=== PATIENT | female | born 1995 | race Caucasian/White ===

== ENCOUNTER 2016-10-15 13:08 | Emergency (ER) | payer OTHER ==
[~2016-10-15] VITALS: Wt 94.0 kg
[~2016-10-15 13:08] MED LIST: HYOS0.1274 PO; ONDA4TAB8 PO
[2016-10-15] MEDS ORDERED: IBUPROFEN 800 MG TAB PO ONE (15:30)
[2016-10-15] MEDS ORDERED: IBUP-1542 PO (15:38)
--- NOTE | 2016-10-15 15:45 | ERD ---
ER Documentation Chief Complaint Date/Time DATE: 10/15/16 TIME: 15:41 Chief Complaint FINGER INJURY, SEEN AT ANOTHER HOSPITAL AND ADVISED FOR FOLLOW-UP HPI 21-year-old female with a past medical history of asthma, gastric bypass, cholecystectomy presents to the ED complaining of a laceration sustained to her left middle finger. States that she accidentally cut her left middle finger from a broken champagne glass 2 days ago. States that she was seen at [facility] and received an x-ray which was negative for any foreign bodies or fractures or dislocations. Reports that she has a sharp type of pain and rates it a 8 out of 10. Dates that she sustained a tendon injury and was told to see a hand specialist however presents today hoping that she could see a hand specialist. Denies any fever, chills, loss of sensation, loss of range of motion. ROS All systems reviewed and are negative except as per history of present illness. Medications Home Meds Active Scripts Ibuprofen* (Motrin*) 600 Mg Tab, 600 MG PO Q6, #30 TAB Prov:CODY SHEPPARD PA-C 10/15/16 Hyoscyamine Sulfate* (Levsin*) 0.125 Mg Tablet, 0.125 MG PO Q4H Y for spasm, # 10 TAB Prov:DIVINA DE DO 04/21/16 Ondansetron Hcl* (Zofran*) 4 Mg Tablet, 4 MG PO Q8H Y for NAUSEA AND/OR VOMITING , #10 TAB Prov:DIVINA DE DO 04/21/16 Allergies Allergies: Coded Allergies: No Known Allergy (Unverified , 01/06/16) PMhx/Soc History of Surgery: Yes (GASTRIC BYPASS) Anesthesia Reaction: No Hx Neurological Disorder: No Hx Respiratory Disorders: Yes (ASTHMA) Hx Cardiac Disorders: No Hx Psychiatric Problems: No Hx Miscellaneous Medical Probl: No Hx Alcohol Use: Yes (OCC) Hx Substance Use: No Hx Tobacco Use: No Smoking Status: Never smoker Physical Exam Vitals Vital Signs Date Time Temp Pulse Resp B/P Pulse Ox O2 Delivery O2 Flow Rate FiO2 10/15/16 13:15 97.0 59 18 118/80 98 Physical Exam Const: [id number], well-nourished. In no acute distress. Head: Atraumatic, normocephalic Eyes: Normal Conjunctiva without injection ENT: Normal external ear, nose and mouth. Neck: Full range of motion. No meningismus. Resp: Clear to auscultation bilaterally. No wheezing, rhonchi, rales, or crackles. No accessory muscle use. No retractions. Cardio: Regular rate and rhythm, no murmurs Skin: No petechiae or rashes Back: No midline tenderness. No CVA tenderness. Ext: No cyanosis, or edema. Full range of motion noted of the DIP, MCP joints. Slight limited range of motion of the DIP joint of the left middle finger. All other joints have full range of motion. No erythema, edema, purulent discharge. Cap refill less than 2 seconds. Distal pulses intact bilaterally. Neur: Awake and alert. Normal gait and coordination. Muscle strength 5/5. Sensation intact bilaterally. Psych: Normal Mood and Affect Results 24 hrs Current Medications Medications (Trade) Dose Ordered Sig/Keenan Route PRN Reason Start Time Stop Time Status Last Admin Dose Admin Ibuprofen (Motrin) 800 mg ONCE ONCE PO 10/15/16 15:30 10/15/16 15:31 DC Procedures/MDM This is a 21-year-old female with no significant past medical history presents to the ED complaining of a left middle finger laceration she sustained 2 days ago after touching a broken piece of champagne glass. Patient is afebrile and nontoxic-appearing. Patient has normal vital signs. There is currently 4 sutures noted on the laceration site placed by a physician at [facility]. There is no signs of dehiscence. Patient's laceration is healing well and appropriately. No evidence of cellulitis, sepsis. Patient verbalized that an x -ray of her left hand was done and was negative for fractures and glass foreign bodies. She did state that her tendon was lacerated, and is here for a referral. I will give patient the all review hand clinic resource and she is to follow-up with her primary care physician for a referral within 1 week. Patient is placed in a left middle finger metal splint. Splint Assessment: Neurovascularly intact pre and post splint placement with good fit. Patient's extremity symptoms have stabilized while they have been evaluated in the department and are appropriate for outpatient follow up. No evidence of fractures, dislocations, compartment syndrome, neurologic injury, vascular injury, open joint, open fracture, septic arthritis, osteomyelitis, DVT, foreign body, or other emergent conditions. Discharge medications: Ibuprofen. Patient was prescribed Keflex by the [place] [facility] physician, I strictly instructed patient to fill this prescription. Follow up with primary care physician in 1-2 days. Instructed patient to return to the ED sooner for any worsening symptoms. Patient's questions were answered. Patient understood and agreed with discharge plan. Patient discharged stable. Departure Diagnosis: Primary Impression: Finger injury Encounter type: initial encounter Laterality: left Qualified Code: S69.92XA - Finger injury, left, initial encounter Condition: Stable Patient Instructions: Laceration, Hand, Laceration, Tendon Referrals: BENY WALSH MD (PCP) [facility] YOU HAVE RECEIVED A MEDICAL SCREENING EXAM AND THE RESULTS INDICATE THAT YOU DO NOT HAVE A CONDITION THAT REQUIRES URGENT TREATMENT IN THE EMERGENCY DEPARTMENT. FURTHER EVALUATION AND TREATMENT OF YOUR CONDITION CAN WAIT UNTIL YOU ARE SEEN IN YOUR DOCTORS OFFICE WITHIN THE NEXT 1-2 DAYS. IT IS YOUR RESPONSIBILITY TO MAKE AN APPOINTMENT FOR FOLOW-UP CARE. IF YOU HAVE A PRIMARY DOCTOR --you should call your primary doctor and schedule an appointment IF YOU DO NOT HAVE A PRIMARY DOCTOR YOU CAN CALL OUR PHYSICIAN REFERRAL HOTLINE AT IF YOU CAN NOT AFFORD TO SEE A PHYSICIAN YOU CAN CHOSE FROM THE FOLLOWING [facility] [address] [facility]. [facility] [address] [facility]. [facility] [address] [facility] [facility] [address] [facility] [address] [facility]. [facility]. [address] [facility]. [facility] YOU HAVE RECEIVED A MEDICAL SCREENING EXAM AND THE RESULTS INDICATE THAT YOU DO NOT HAVE A CONDITION THAT REQUIRES URGENT TREATMENT IN THE EMERGENCY DEPARTMENT. FURTHER EVALUATION AND TREATMENT OF YOUR CONDITION CAN WAIT UNTIL YOU ARE SEEN IN YOUR DOCTORS OFFICE WITHIN THE NEXT 1-2 DAYS. IT IS YOUR RESPONSIBILITY TO MAKE AN APPOINTMENT FOR FOLOW-UP CARE. IF YOU HAVE A PRIMARY DOCTOR --you should call your primary doctor and schedule and appointment IF YOU DO NOT HAVE A PRIMARY DOCTOR YOU CAN CALL OUR PHYSICIAN REFERRAL HOTLINE AT . IF YOU CAN NOT AFFORD TO SEE A PHYSICIAN YOU CAN CHOSE FROM THE FOLLOWING [facility] INSTITUTIONS: [facility] [address] [place] [address] [facility] [address] [place] [address] [facility] [address] [place] [address] [facility] Additional Instructions: FOLLOW UP WITH YOUR PRIMARY CARE PHYSICIAN TOMORROW for a referral to a hand specialist. Complete the course of Keflex prescribed by [place] doctor. Return to this facility if you are not improving as expected. CODY SHEPPARD PA-C Oct 15, 2016 15:45
== END 2016-10-15 16:02 | disposition home or self-care (01) ==
LOC: FTE 13:08
DX: S61.213A Laceration without foreign body of left middle finger without damage to nail, initial encounter (principal); J45.909 Unspecified asthma, uncomplicated; W25.XXXA Contact with sharp glass, initial encounter; Y92.9 Unspecified place or not applicable
CPT/HCPCS: 29130; Z7502; Z7610

== ENCOUNTER 2018-10-15 12:34 | Emergency (ER) | payer MEDICAID, OTHER ==
[~2018-10-15] VITALS: Ht 180.3 cm; Wt 111.3 kg
[~2018-10-15 12:34] MED LIST changes: +IBUP-1542 PO
[2018-10-15 12:41] VITALS: PULSE 96; RESP 20; Ht 180.3 cm; Wt 111.3 kg
--- NOTE | 2018-10-15 14:54 | ERD ---
ER Documentation Chief Complaint Chief Complaint pt. is 16 weeks , sent by OBGYN, "no movement" HPI 23-year-old female at 16 weeks EGA by LMP 06/26/18, presents to the em ergency department referred by [facility] for an ultrasound, according to the patient she is not able to feel the fetus and she was feeling it last week. The patient denies vaginal bleeding, no vaginal discharge, no abdominal pain, no fever or chills. ROS All systems reviewed and are negative except as per history of present illness. Medications Home Meds Active Scripts Ibuprofen* (Motrin*) 600 Mg Tab, 600 MG PO Q6, #30 TAB Prov:CODY SHEPPARD PA-C 10/15/16 Hyoscyamine Sulfate* (Levsin*) 0.125 Mg Tablet, 0.125 MG PO Q4H PRN for spasm, #10 TAB Prov:DIVINA DE DO 04/21/16 Ondansetron Hcl* (Zofran*) 4 Mg Tablet, 4 MG PO Q8H PRN for NAUSEA AND/OR VOMITING, #10 TAB Prov:DIVINA DE 04/21/16 Allergies Allergies: Coded Allergies: No Known Allergy (Unverified , 01/06/16) PMhx/Soc History of Surgery: Yes (GASTRIC BYPASS) Anesthesia Reaction: No Hx Neurological Disorder: No Hx Respiratory Disorders: Yes (ASTHMA) Hx Cardiac Disorders: No Hx Psychiatric Problems: No Hx Miscellaneous Medical Probl: No Hx Alcohol Use: Yes (OCC) Hx Substance Use: No Hx Tobacco Use: No Physical Exam Vitals Vital Signs Date Temp Pulse Resp B/P (MAP) Pulse Ox O2 O2 Flow FiO2 Time Delivery Rate 10/15/18 98.1 96 20 98 12:41 Physical Exam Const: No acute distress Head: Atraumatic Eyes: Normal Conjunctiva ENT: Normal External Ears, Nose and Mouth. Neck: Full range of motion. No meningismus. Resp: Clear to auscultation bilaterally Cardio: Regular rate and rhythm, no murmurs Abd: Soft, non tender, non distended. Normal bowel sounds Skin: No petechiae or rashes Back: No midline or flank tenderness Ext: No cyanosis, or edema Neur: Awake and alert Psych: Normal Mood and Affect Results 24 hrs Laboratory Tests Test 10/15/18 15:02 Bedside Urine pH (LAB) 7.0 Bedside Urine Protein (LAB) Negative Bedside Urine Glucose (UA) Negative Bedside Urine Ketones (LAB) Negative Bedside Urine Blood Negative Bedside Urine Nitrite (LAB) Negative Bedside Urine Leukocyte Esterase (L Negative [place] [id number] Radiology Main Line: [phone] DIAGNOSTIC IMAGING REPORT Patient: DESTINEE VERAS : 1995 Age: 23 Sex: F MR #: [id number] DOS: 10/15/18 1452 Ordering MD: BENITA DE LA O MD Location: [facility] Room/Bed: PROCEDURE: US OB. CLINICAL INDICATION: Obstetrical surveillance TECHNIQUE: Transabdominal obstetrical sonographic evaluation was performed. COMPARISON: None available. FINDINGS: There is a single living intrauterine gestation with cephalic presentation and anterior midline placenta. There is a moderate amount of amniotic fluid. heart rate of 152 beats per minute was detected during this examination. BPD = 3.4 cm, 16 weeks and 3 days HC = 12.4 cm, 16 weeks and 1 day AC = 10 cm, 16 weeks and 0 day FL = 1.9 cm, 15 weeks and 3 days Based on four parameters of biparietal diameter, head circumference, abdominal circumference and femoral head, estimated gestational age only based on this study is 16 weeks +/- 1 week and 1 day. Estimated date of confinement based on this examination is 04/01/2019. Estimated weight is 136 +/- 20 grams. Cephalic index is 79%, within normal limits. IMPRESSION: 1. Single living intrauterine gestation with estimated gestational age of 16 weeks +/- 1 week and 1 day. RPTAT:AAEE Physician Ibrahima Date Time Electronically viewed and signed by Physician Ibrahima on 10/15/2018 16:03 RM/ CC: BENITA DE LA O MD [phone] Procedures/MDM Vital signs stable, Physical exam unremarkable. Differential diagnosis include but not limited to: UTI, threatening , incomplete versus complete , ectopic , physiologic implantation bleeding, molar . Physical examination and clinical presentation most likely consistent with decreased motion. During the ED course the patient remained hemodynamically stable and asymptomatic. Results and clinical impression discussed with patient who agrees with management. The patient is stable to be treated outpatient and will be d ischarged home with close monitoring and follow-up in 2 days with her primary physician. The patient was instructed regarding the outcomes and the potential complications like severe bleeding. If the patient presents severe bleeding or pain, she was instructed to return to the hospital immediately. Disclaimer: Inadvertent spelling and grammatical errors are likely due to EHR/di ctation software use and do not reflect on the overall quality of patient care. Also, please note that the electronic time recorded on this note does not necessarily reflect the actual time of the patient encounter. Departure Diagnosis: Primary Impression: Decreased movement during in second trimester, antepartum Additional Impression: with 16 completed weeks gestation Condition: Stable Additional Instructions: Thank you very much for allowing us to participate in your care. Your health and safety is our top priority at [facility]. Call your primary care doctor TOMORROW for an appointment during the next 2-4 days and bring all the information and medications prescribed. Have prescriptions filled and follow precisely the directions on the label. If the symptoms get worse and your provider is unavailable, return to the Emergency Department immediately. BENITA DE LA O MD Oct 15, 2018 14:54
== END 2018-10-15 16:24 | disposition home or self-care (01) ==
LOC: FTE 12:34
DX: O36.8121 Decreased fetal movements, second trimester, fetus 1 (principal); O99.512 Diseases of the respiratory system complicating pregnancy, second trimester; Z3A.16 16 weeks gestation of pregnancy
CPT/HCPCS: 76805; 81003; Z7502

== ENCOUNTER 2019-02-16 17:54 | Emergency (ER) | payer MEDICAID, OTHER ==
[~2019-02-16] VITALS: Wt 114.1 kg
[2019-02-16 18:03] VITALS: BP 126/67; PULSE 83; RESP 16
--- NOTE | 2019-02-16 20:50 | ERD ---
ER Documentation Chief Complaint Chief Complaint 33 wks : ref by automobile mechanic 'pls give rhogam'. no symptoms. HPI Patient is a 24-year-old female with asthma who presents from her doctor saying "to get RhoGam". The patient is 33 weeks . She was sent by Dr. Peters with a note saying "to give RhoGam". The patient does not want a RhoGam shot at this time as she is not bleeding. She is Rh-. She has no symptoms. ROS All systems reviewed and are negative except as per history of present illness. Medications Home Meds Active Scripts Ibuprofen* (Motrin*) 600 Mg Tab, 600 MG PO Q6, #30 TAB Prov:CODY SHEPPARD PA-C 10/15/16 Hyoscyamine Sulfate* (Levsin*) 0.125 Mg Tablet, 0.125 MG PO Q4H PRN for spasm, #10 TAB Prov:DIVINA DE DO 04/21/16 Ondansetron Hcl* (Zofran*) 4 Mg Tablet, 4 MG PO Q8H PRN for NAUSEA AND/OR VOMITING, #10 TAB Prov:DIVINA DE DO 04/21/16 Allergies Allergies: Coded Allergies: No Known Allergy (Unverified , 01/06/16) PMhx/Soc History of Surgery: Yes (GASTRIC BYPASS) Anesthesia Reaction: No Hx Neurological Disorder: No Hx Respiratory Disorders: Yes (ASTHMA) Hx Cardiac Disorders: No Hx Psychiatric Problems: No Hx Miscellaneous Medical Probl: No Hx Alcohol Use: Yes (OCC) Hx Substance Use: No Hx Tobacco Use: No Smoking Status: Never smoker FmHx Family History: diabetes Physical Exam Vitals Vital Signs Date Temp Pulse Resp B/P (MAP) Pulse Ox O2 O2 Flow FiO2 Time Delivery Rate 02/16/19 97.5 83 16 126/67 94 18:03 (86) Physical Exam Const: No acute distress Head: Atraumatic Eyes: Normal Conjunctiva ENT: Normal External Ears, Nose and Mouth. Neck: Full range of motion. No meningismus. Resp: Clear to auscultation bilaterally Cardio: Regular rate and rhythm, no murmurs Abd: Soft, 33-week abdomen Skin: No petechiae or rashes Back: No midline or flank tenderness Ext: No cyanosis, or edema Neur: Awake and alert Psych: Normal Mood and Affect Procedures/MDM Patient is a 24-year-old female who presents from the OB office saying that she needs a shot of RhoGam. This is not an emergency situation and she is not bleeding I do not believe that RhoGam is indicated in the emergency department. She can return to the office and have a RhoGam shot delivered there. Departure Diagnosis: Primary Impression: Weeks of gestation: 33 weeks Qualified Codes: Z3A.33 - 33 weeks gestation of Condition: Fair Patient Instructions: : Common Questions Referrals: MIGUELINA BANERJEE MD Additional Instructions: If you need Rhogam this should be given by Dr. Peters in the office. LORE MITCHELL MD February 16, 2019 20:50
== END 2019-02-16 20:32 | disposition home or self-care (01) ==
LOC: FTE 17:54
DX: Z36.89 Encounter for other specified antenatal screening (principal); O99.513 Diseases of the respiratory system complicating pregnancy, third trimester; J45.909 Unspecified asthma, uncomplicated; Z3A.33 33 weeks gestation of pregnancy
CPT/HCPCS: 99282